=== PATIENT | female | born 1950 | race Caucasian/White ===

== ENCOUNTER → 2017-01-06 | Outpatient (CLI) | payer BC ==
[~2017-01-06] MED LIST: AMOXICILLIN 50500 MG PO; CIPRO 500MG TA500 MG PO; CRESTOR 10MG10 MG PO; LEVAQUIN 5500 MG/TA1 PO; LEVOFLOXACIN500 MG PO; LISINOPRIL10 MG PO; LORAZEPAM1 MG PO; NORCO 325 MG-51 TAB PO; PERCOCET 325 MG1 TA2 PO; PRIL40 PO; SYNTHROID0.1 MG PO; ZOLOFT PO
== END ==
LOC: COL.VAS 01-03 08:00
DX: I10 Essential (primary) hypertension (principal); I25.10 Atherosclerotic heart disease of native coronary artery without angina pectoris

== ENCOUNTER 2017-05-08 20:23 | Emergency (ER) | payer BC ==
[~2017-05-08] VITALS: Ht 157.5 cm; Wt 72.3 kg
[~2017-05-08 20:23] MED LIST changes: -AMOXICILLIN 50500 MG PO; -PERCOCET 325 MG1 TA2 PO; -PRIL40 PO
[2017-05-08 20:26] VITALS: TEMP 98
[2017-05-08] MEDS ORDERED: PRIL40 PO (20:31)
[2017-05-08 20:51] LABS: BASO # 0.1 (0.0-0.2); BASO % 0.4 % (0.0-2.0); EOS # 0.3 (0.0-0.7); EOS % 2.2 % (0-4.0); GRAN # 5.5 (1.4-6.5); GRAN % 47.1 % (42.2-75.2); HEMATOCRIT 38.8 % (37.0-47.0); HEMOGLOBIN 13.9 g/dl (12.5-16.0); LYMPH # 5.1 (1.2-3.4); LYMPH % 43.7 % (20.0-51.0); MEAN CELL VOLUME 92 fl (80.0-100.0); MEAN CORPUSCULAR HEMOGLOBIN 33 pg (27.0-31.0); MEAN CORPUSCULAR HGB CONC 36 g/dl (33.0-37.0); MONO # 0.7 (0.1-0.6); MONO % 6.3 % (1.7-9.3); PLATELET COUNT 246 K/mm3 (130-400); RED BLOOD COUNT 4.22 M/mm3 (4.10-5.30); REDCELL DISTRIBUTION WIDTH-CV 12.1 % (11.5-14.5); WHITE BLOOD COUNT 11.7 K/mm3 (4.8-10.8)
[2017-05-08 21:02] LABS: ADJUSTED CALCIUM 8.8 mg/dL (8.4-10.2); ALANINE AMINOTRANSFERASE 41 U/L (9-52); ALBUMIN 4.4 gm/dL (3.5-5.0); ALKALINE PHOSPHATASE 93 U/L (50-136); ANION GAP 13 mmol/L (7-16); BILIRUBIN,TOTAL 0.5 mg/dL (0.0-1.0); BLOOD UREA NITROGEN 10 mg/dL (7-17); CALCIUM 9.1 mg/dL (8.4-10.2); CARBON DIOXIDE 23 mmol/L (22-30); CHLORIDE 106 mmol/L (98-107); CREATININE, serum 0.66 mg/dL (0.52-1.25); GLUCOSE 85 mg/dL (74-106); LIPASE 80 U/L (23-300); POTASSIUM 3.8 mmol/L (3.4-5.0); SODIUM 141 mmol/L (137-145)
[2017-05-08 21:05] LABS: ACETAMINOPHEN < 10 ug/mL (10-30)
[2017-05-08 21:15] LABS: TROPONIN-I < 0.012 ng/mL (0.000-0.034)
[2017-05-08] MEDS ORDERED: AMOXICILLIN 50500 MG PO (22:25)
[2017-05-08] MEDS ORDERED: PERCOCET 325 MG1 TA2 PO (22:25)
[2017-05-08 22:26] VITALS: BP 135/77; PULSE 83
== END 2017-05-08 22:37 | disposition home or self-care (01) ==
LOC: COL.ER 20:23
PROVIDERS: Emergency Medicine
DX: K08.89 Other specified disorders of teeth and supporting structures (principal); I10 Essential (primary) hypertension; I25.10 Atherosclerotic heart disease of native coronary artery without angina pectoris; E78.5 Hyperlipidemia, unspecified
CPT/HCPCS: J1170; J2405

== ENCOUNTER 2017-09-20 19:13 | Inpatient (IN) | payer MEDICARE, BC ==
[~2017-09-20] VITALS: Ht 157.5 cm; Wt 74.6 kg
[~2017-09-20 19:13] MED LIST changes: +AMOXICILLIN 50500 MG PO; +PERCOCET 325 MG1 TA2 PO; +PRIL40 PO
[2017-09-20 19:55] LABS: COLLECTION METHOD CLEAN CATCH
[2017-09-20 19:59] LABS: BASO # 0.1 (0.0-0.2); BASO % 0.6 % (0.0-2.0); EOS # 0.3 (0.0-0.7); EOS % 2.5 % (0-4.0); GRAN # 7.2 (1.4-6.5); GRAN % 56.3 % (42.2-75.2); HEMATOCRIT 45.7 % (37.0-47.0); HEMOGLOBIN 16.3 g/dl (12.5-16.0); LYMPH # 4.3 (1.2-3.4); MEAN CELL VOLUME 92 fl (80.0-100.0); MEAN CORPUSCULAR HEMOGLOBIN 33 pg (27.0-31.0); MEAN CORPUSCULAR HGB CONC 36 g/dl (33.0-37.0); MEAN PLATELET VOLUME 10.4 fl (7.4-10.4); MONO # 0.8 (0.1-0.6); MONO % 6.4 % (1.7-9.3); PLATELET COUNT 278 K/mm3 (130-400); RED BLOOD COUNT 4.98 M/mm3 (4.10-5.30); WHITE BLOOD COUNT 12.8 K/mm3 (4.8-10.8)
[2017-09-20] MEDS ORDERED: AMOXICILLIN 8751 TAB PO (20:02)
[2017-09-20 20:24] LABS: MUCOUS Present /lpf; PH 5 (5-8); SQUAMOUS EPITHELIAL 0-2 /hpf; URINE APPEARANCE Cloudy; URINE BACTERIA None Seen /hpf; URINE BILIRUBIN Positive (NEGATIVE); URINE BLOOD Negative (NEGATIVE); URINE CALCIUM OXALATE CRYSTAL Present /hpf; URINE COLOR Amber; URINE GLUCOSE Negative (NEGATIVE); URINE KETONE Trace (NEGATIVE); URINE LEUKOCYTE ESTERASE 3+ (NEGATIVE); URINE PROTEIN(semi-quant) 1+ (NEGATIVE); URINE RBC 20-50 /hpf; URINE UROBILINOGEN >=4.0 mg/dL (NEGATIVE)
[2017-09-20 20:25] LABS: URINE WBC >50 /hpf
[2017-09-20 21:13] LABS: ADJUSTED CALCIUM 9.5 mg/dL (8.4-10.2); ALBUMIN 4.8 gm/dL (3.5-5.0); BILIRUBIN,TOTAL 0.6 mg/dL (0.0-1.0); CALCIUM 10.1 mg/dL (8.4-10.2); CREATININE, serum 0.76 mg/dL (0.52-1.25); POTASSIUM 4.2 mmol/L (3.4-5.0); TOTAL PROTEIN 8.8 gm/dL (6.4-8.2)
[2017-09-20] MEDS ORDERED: NORVASC 5MG5 MG/TAB PO (22:44)
[2017-09-20] MEDS ORDERED: VESICARE 5MG5 MG PO (22:45)
[2017-09-20] MEDS ORDERED: OMEGA-31 SGL PO (22:45)
[2017-09-20 23:10] VITALS: BP 143/69; PULSE 96; TEMP 97.7
[2017-09-21] MEDS ORDERED: TYLENOL PM EXTR1 TA1 PO (00:08)
[2017-09-21] MEDS ORDERED: EXCEDRIN1 TAB (00:08)
[2017-09-21 05:14] VITALS: BP 127/76; PULSE 79; TEMP 98.1
[2017-09-21 09:16] VITALS: BP 132/77; PULSE 79; TEMP 97.6
[2017-09-21 10:29] LABS: BASO # 0.1 (0.0-0.2); BASO % 0.4 % (0.0-2.0); EOS # 0.2 (0.0-0.7); GRAN # 6.4 (1.4-6.5); GRAN % 53.8 % (42.2-75.2); HEMATOCRIT 38.5 % (37.0-47.0); LYMPH # 4.4 (1.2-3.4); LYMPH % 37.3 % (20.0-51.0); MEAN CELL VOLUME 93 fl (80.0-100.0); MEAN CORPUSCULAR HEMOGLOBIN 32 pg (27.0-31.0); MEAN CORPUSCULAR HGB CONC 35 g/dl (33.0-37.0); MEAN PLATELET VOLUME 9.7 fl (7.4-10.4); MONO # 0.7 (0.1-0.6); MONO % 6.2 % (1.7-9.3); PLATELET COUNT 247 K/mm3 (130-400); RED BLOOD COUNT 4.14 M/mm3 (4.10-5.30); WHITE BLOOD COUNT 11.8 K/mm3 (4.8-10.8)
[2017-09-21 10:30] LABS: HEMOGLOBIN 13.4 g/dl (12.5-16.0)
[2017-09-21 10:40] LABS: CALCIUM 9.3 mg/dL (8.4-10.2); CREATININE, serum 0.72 mg/dL (0.52-1.25); POTASSIUM 4.5 mmol/L (3.4-5.0)
[2017-09-21 14:01] VITALS: BP 117/66; PULSE 81; TEMP 98
[2017-09-21 17:42] VITALS: BP 127/61; PULSE 74; TEMP 98
[2017-09-21 22:34] VITALS: BP 156/68; PULSE 83; TEMP 98.2
[2017-09-22 02:22] VITALS: BP 147/68; PULSE 76; TEMP 98.5
[2017-09-22 05:35] VITALS: BP 133/71; PULSE 77; TEMP 98.1
[2017-09-22 07:22] LABS: BASO # 0.1 (0.0-0.2); BASO % 0.5 % (0.0-2.0); EOS # 0.3 (0.0-0.7); EOS % 2.8 % (0-4.0); GRAN # 4.2 (1.4-6.5); GRAN % 45.6 % (42.2-75.2); HEMOGLOBIN 12.5 g/dl (12.5-16.0); LYMPH # 4.1 (1.2-3.4); LYMPH % 45.2 % (20.0-51.0); MEAN CELL VOLUME 95 fl (80.0-100.0); MEAN CORPUSCULAR HEMOGLOBIN 32 pg (27.0-31.0); MEAN CORPUSCULAR HGB CONC 34 g/dl (33.0-37.0); MEAN PLATELET VOLUME 10.2 fl (7.4-10.4); MONO # 0.5 (0.1-0.6); MONO % 5.7 % (1.7-9.3); PLATELET COUNT 222 K/mm3 (130-400); RED BLOOD COUNT 3.88 M/mm3 (4.10-5.30); WHITE BLOOD COUNT 9.1 K/mm3 (4.8-10.8)
[2017-09-22 07:27] LABS: HEMATOCRIT 36.8 % (37.0-47.0)
[2017-09-22 07:30] LABS: CALCIUM 8.6 mg/dL (8.4-10.2); CREATININE, serum 0.68 mg/dL (0.52-1.25); POTASSIUM 4.2 mmol/L (3.4-5.0)
[2017-09-22 14:59] VITALS: BP 147/70; PULSE 82; TEMP 98.6
[2017-09-22 17:46] VITALS: BP 165/86; PULSE 84; TEMP 98.1
[2017-09-22 22:00] VITALS: BP 169/82; PULSE 77; TEMP 98.3
[2017-09-23 02:15] VITALS: BP 159/95; PULSE 80; TEMP 98.2
[2017-09-23 05:02] VITALS: BP 134/60; PULSE 81; TEMP 98.8
[2017-09-23 07:15] LABS: BASO % 0.3 % (0.0-2.0); EOS # 0.2 (0.0-0.7); GRAN # 5.9 (1.4-6.5); GRAN % 59.1 % (42.2-75.2); HEMOGLOBIN 12.9 g/dl (12.5-16.0); LYMPH # 3.3 (1.2-3.4); LYMPH % 32.9 % (20.0-51.0); MEAN CELL VOLUME 92 fl (80.0-100.0); MEAN CORPUSCULAR HEMOGLOBIN 32 pg (27.0-31.0); MEAN CORPUSCULAR HGB CONC 35 g/dl (33.0-37.0); MEAN PLATELET VOLUME 10.2 fl (7.4-10.4); MONO # 0.5 (0.1-0.6); MONO % 5.4 % (1.7-9.3); PLATELET COUNT 232 K/mm3 (130-400); RED BLOOD COUNT 4.02 M/mm3 (4.10-5.30); WHITE BLOOD COUNT 9.9 K/mm3 (4.8-10.8)
[2017-09-23 07:19] LABS: HEMATOCRIT 36.9 % (37.0-47.0)
[2017-09-23 07:25] LABS: CALCIUM 9.2 mg/dL (8.4-10.2); CREATININE, serum 0.65 mg/dL (0.52-1.25); POTASSIUM 4.5 mmol/L (3.4-5.0)
[2017-09-23 09:55] VITALS: PULSE 80; TEMP 97.7
== END 2017-09-23 14:25 | disposition home or self-care (01) | DRG 389 ==
LOC: COL.ER 19:13 → SURG 21:33
PROVIDERS: Emergency Medicine; Surgery
PROC: 0D9670Z Drainage of Stomach with Drainage Device, Via Natural or Artificial Opening (ICD-10-PCS; principal; 2017-09-20)
DX: K56.600 Partial intestinal obstruction, unspecified as to cause (principal); N39.0 Urinary tract infection, site not specified; I10 Essential (primary) hypertension; Z87.891 Personal history of nicotine dependence
CPT/HCPCS: J0744; J1170; J1650; J1956; J2270; J2405; J7030; J7050; Q9967

== ENCOUNTER 2019-04-16 01:03 | Inpatient (IN) | payer MEDICARE, BC ==
[2019-04-16] VITALS (339 sets, daily range): BP systolic 132–181; BP diastolic 72–105; PULSE 74–102; TEMP 97.6–98.5; O2SAT 87–96
[~2019-04-16] VITALS: Ht 157.5 cm; Wt 70.5 kg
[~2019-04-16 01:03] MED LIST changes: +AMOXICILLIN 8751 TAB PO; +EXCEDRIN1 TAB PO; +KRILL OIL 5001 EACH PO; +NORVASC 5MG5 MG/TAB PO; +SYNTHROID0.088 MG/T PO; -SYNTHROID0.1 MG PO; +TYLENOL PM EXTR1 TA1 PO; +VESICARE 5MG5 MG PO
[2019-04-16 01:32] LABS: BASO # 0.1 (0.0-0.2); BASO % 0.4 % (0.0-2.0); EOS # 0.2 (0.0-0.7); EOS % 1.7 % (0-4.0); GRAN # 7.8 (1.4-6.5); GRAN % 69.7 % (42.2-75.2); HEMATOCRIT 37.7 % (37.0-47.0); LYMPH # 2.5 (1.2-3.4); LYMPH % 22.1 % (20.0-51.0); MEAN CELL VOLUME 93 fl (80.0-100.0); MEAN CORPUSCULAR HEMOGLOBIN 32 pg (27.0-31.0); MEAN CORPUSCULAR HGB CONC 35 g/dl (33.0-37.0); MEAN PLATELET VOLUME 9.8 fl (7.4-10.4); MONO # 0.7 (0.1-0.6); MONO % 5.8 % (1.7-9.3); PLATELET COUNT 233 K/mm3 (130-400); RED BLOOD COUNT 4.06 M/mm3 (4.10-5.30); REDCELL DISTRIBUTION WIDTH-CV 12.1 % (11.5-14.5)
[2019-04-16 01:40] LABS: PROTHROMBIN TIME 11.2 SECONDS (9.7-12.8)
[2019-04-16 01:42] LABS: ALBUMIN 3.9 gm/dL (3.5-5.0); BILIRUBIN,TOTAL 0.3 mg/dL (0.0-1.0); CALCIUM 9.1 mg/dL (8.4-10.2); CREATININE, serum 0.69 (0.52-1.25); POTASSIUM 4.2 mmol/L (3.4-5.0); TOTAL PROTEIN 7.6 gm/dL (6.4-8.2)
[2019-04-16 01:56] LABS: TROPONIN-I 0.078 ng/mL (0.000-0.035)
[2019-04-16 02:30] LABS: PARTIAL THROMBOPLASTIN TIME 30.9 SECONDS (26.0-37.0)
--- NOTE | 2019-04-16 06:35 | NUR ---
Patient arrived to medical floor room 319 from ER at approximately 0440. Denied having pain and discomfort. Stated that she just wants to go home, and is feeling much better. Explained that we had a cardiology consult for her today, and that she will remain NPO until after seen by cardiology to see if any tests needs to be performed. Voiced understanding. Given medications with sips of water. Heparin gtt continues at 8.5 ml/hr, along with NS at 75 ml/hr to right forearm. In bed watching TV at this time. Voices no other questions, needs, or concerns at this time. Call light is within reach.
[2019-04-16 07:34] LABS: TROPONIN-I 3 HR POST INITIAL 1.05 ng/mL (0.000-0.034)
--- NOTE | 2019-04-16 07:42 | NUR ---
Pt resting in bed with call light in reach. Pt troponin level called to Dr. De León. NNO.
--- NOTE | 2019-04-16 08:07 | NUR ---
Pt told lab to leave and they were unable to draw hep xa.
--- NOTE | 2019-04-16 10:10 | NUR ---
Pt was on heparin gtt at shift change per Katia Long RN. Heparin shows dc'd this am. Heparin gtt order clarified with Dr. De León and order given to DC gtt for now.
--- NOTE | 2019-04-16 10:21 | NUR ---
Initial visit; Patient thanked Palliative Medicine Physician for looking in on her and letting her know of the ability of Spiritual Care. Patient is planning her discharge with Social Work.
--- NOTE | 2019-04-16 11:26 | NUR ---
gave order to place heart cath orders. Heart cath order set used. lab courier called. Pt remains NPO.
[2019-04-16 11:37] LABS: PROTHROMBIN TIME 11.2 SECONDS (9.7-12.8)
[2019-04-16 11:39] LABS: PARTIAL THROMBOPLASTIN TIME 46.5 SECONDS (26.0-37.0)
[2019-04-16 11:45] LABS: HEMATOCRIT 39.8 % (37.0-47.0); HEMOGLOBIN 13.5 g/dl (12.5-16.0); MEAN CELL VOLUME 96 fl (80.0-100.0); MEAN CORPUSCULAR HEMOGLOBIN 33 pg (27.0-31.0); MEAN CORPUSCULAR HGB CONC 34 g/dl (33.0-37.0); MEAN PLATELET VOLUME 11.7 fl (7.4-10.4); PLATELET COUNT 243 K/mm3 (130-400); RED BLOOD COUNT 4.15 M/mm3 (4.10-5.30); REDCELL DISTRIBUTION WIDTH-CV 12.4 % (11.5-14.5)
[2019-04-16 11:50] LABS: CALCIUM 9.1 mg/dL (8.4-10.2); CREATININE, serum 0.63 (0.52-1.25); POTASSIUM 4.2 mmol/L (3.4-5.0)
--- NOTE | 2019-04-16 13:30 | NUR ---
Pt sleeping with even non-labored resp. Awakens per verbal stimuli. C/O headache when moving rates 5/10. NS continue to infuse at 75mL/hr. New bag of NS hung. Drifts back to sleep easily. Denies chest pain at this time.
--- NOTE | 2019-04-16 14:02 | NUR ---
Pt given 650mg tylenol for her headache rated 5/10. Consent signed and on chart.
--- NOTE | 2019-04-16 14:16 | NUR ---
SW attended clinical rounds to discuss discharge planning. Patient lives independently at home with her and grandchildren. Patient's PCP is Dr Morales and she obtains prescriptions from [facility]. Patient does not use any DME or home health serivces. Patient reported that she has seen a psychiatrist for grief because she has a lot of family members that have past away over the years. Patient reports that she is her grandkids caregiver because they're parents . SW inquired if patient sees someone regularly for her grief but patient reports she does not and is not interested in those services. SW reported that if patient would like any resources, SW can provide them. Patient declined. SW does not anticipate any discharge needs.
--- NOTE | 2019-04-16 14:35 | NUR ---
Pt calls and is c/o chest pain and pain across her lower back. VS monitored BP 178/88 P78 95% RA. Dr De León notified. Will continue to monitor.
--- NOTE | 2019-04-16 16:11 | NUR ---
Pt VS monitored. Staff from [facility] in room going over procedure. To procedure via bed with [facility] staff.
--- NOTE | 2019-04-16 16:31 | NUR ---
PLEASE SEE MERGE FOR ALL MEDICATION ADMINISTRATION TIMES PRE AND POST SEDATION ASSESSMENT DATA.
--- NOTE | 2019-04-16 18:03 | NUR ---
REPORT RECEIVED FROM HOA IN INSURANCE INVESTIGATOR.
--- NOTE | 2019-04-16 18:06 | NUR ---
PT TRANSFERRED FROM [facility] VIA BED TO ICU ROOM 6. PT LETHARGIC BUT EASILY AROUSABLE. PT'S RIGHT GROIN SITE CLEAN AND DRY.
--- NOTE | 2019-04-16 18:35 | NUR ---
PT ALERT AND ORIENTED BUT AGITATED. PT NOT HAPPY ABOUT HAVING TO CHANGE ROOMS, HAVING TO LAY FLAT, HAVING STENTS PLACED, ETC. PT ASKING WHERE HER THINGS ARE AND IF THEY WERE MOVED FROM HER OTHER ROOM.
[2019-04-17] VITALS (741 sets, daily range): BP systolic 129–187; BP diastolic 62–86; PULSE 73–96; TEMP 97.9–98.6; O2SAT 89–97
[2019-04-17 05:32] LABS: BASO % 0.1 % (0.0-2.0); GRAN # 7.5 (1.4-6.5); GRAN % 81.7 % (42.2-75.2); HEMOGLOBIN 13.1 g/dl (12.5-16.0); LYMPH # 1.4 (1.2-3.4); LYMPH % 15.5 % (20.0-51.0); MEAN CELL VOLUME 92 fl (80.0-100.0); MEAN CORPUSCULAR HEMOGLOBIN 33 pg (27.0-31.0); MEAN CORPUSCULAR HGB CONC 35 g/dl (33.0-37.0); MONO # 0.2 (0.1-0.6); MONO % 2.3 % (1.7-9.3); PLATELET COUNT 247 K/mm3 (130-400); RED BLOOD COUNT 4.02 M/mm3 (4.10-5.30)
[2019-04-17 05:43] LABS: CALCIUM 9.1 mg/dL (8.4-10.2); CREATININE, serum 0.79 (0.52-1.25)
--- NOTE | 2019-04-17 07:49 | NUR ---
GAVE REPORT TO STEPHANIE ZIMMER.
--- NOTE | 2019-04-17 07:49 | NUR ---
Report recieved from STEPHANIE Arreola. Patient resting in bed. MIVF infusing to uncomplicated peripheral site at ordered rate. Right groin site CDI, soft and free of hematoma. Patient denies needs at this time. Care assumed.
--- NOTE | 2019-04-17 10:20 | NUR ---
Patient assisted to order breakfast. Family at bedside. Denies further needs.
--- NOTE | 2019-04-17 10:48 | NUR ---
Dr. Cheng rounds on patient at this time.
--- NOTE | 2019-04-17 12:11 | NUR ---
Dr. De León rounds at this time POC discussed to include transfer to medical floor with plans for further PCI on friday. Patient is reluctant to stay but willing to do so based on MD recomendation.
--- NOTE | 2019-04-17 15:19 | NUR ---
Plan is to return home. Patient reports she resides with her Shaan . Patient indicated that she is active and independent. Patient reports that her pcps os Dr[facility] Morales at [facility]. Patient reports that she uses [facility] for RX.Patient denies the use of any dme, report ADLs. DPOA is her DTR Maryana Rader . Patient indicated that she can drive herself home after proceedure. At this time there are no anticipated needs.
--- NOTE | 2019-04-17 15:20 | NUR ---
Patient transported via WC to medical room 319. Right groin site re-dressed with sterile gauze and tegaderms occlusive and IV site wrapped for shower. STEPHANIE Saldana aware of patient arrival. Care transferred.
--- NOTE | 2019-04-17 16:45 | NUR ---
Pt alert and oriented and friend present. Pt denies SOB or chest pain. Pt toook shower upon arrival to unit. Pt washed off nitro paste so replaced when pt out of shower. Pt required one dose of HYdralazine for SBP >180. Pt BP was rechecked and SBP 150's. Pt IV tegaderm replaced and IV patent and no redness or infiltration noted. Pt has call light in reach and telemetry in place.
--- NOTE | 2019-04-17 20:22 | NUR ---
PT IN BED WITH HOB ELEVATED AT 45 DEGREE ANGLE. PT ATE FAST FOOD THAT BROUGHT IN. DENIES PAIN OR DISCOMFORT AND NO NEEDS AT THIS TIME. CALL LIGHT WITHIN REACH.
--- NOTE | 2019-04-18 01:31 | NUR ---
PT STARTED HAVING TIGHTNESS IN CHEST AND LOWER BACK. PT RATED PAIN AT A 3/10. PT STATED THAT THIS IS HOW SHE FELT THE OTHER DAY AND IT GOT WORSE. PT'S O2 SATS WERE AT 93%, PLACED OXYGEN AT 2L/NC AND O2 SATS WENT UP TO 96%. GAVE NITRO X3 AND PT ADVISED THAT IT MADE THE PAIN IN HER CHEST FEEL HEAVY AND GAVE HER A HEADACHE. PT WAS GIVEN TYLENOL FOR HEADACHE AND BACK PAIN. ADAM CORREA WAS NOTIFIED AND SHE ADVISED TO CALL [facility]. RECEIVED ORDERS FROM ADAM CORREA FOR EKG. EKG OBSTAINED, CALLED DR. GUERRERO AND RECEIVED ORDERS FOR ISOSORBIDE MONONITRATE 60 MG PO, ONE TAB NOW AND ONCE DAILY, ALSO A PULMONARY CONSULT. PT MONITORED FOR NEXT HOUR AND PT ADVISED THAT SHE FELT GOOD AND HAS NOT FELT SO RELAX FOR A LONG TIME. PT GOT AT 0130 AND CAME TO NURSES' STATION AND REQUESTED SOME CRACKERS FOR A SNACK. PT ADVISED THAT SHE IS FEELING FINE NO PAIN OR DISCOMFORT AT THIS TIME. PT WENT BACK TO ROOM.
[2019-04-18 03:48] VITALS: BP 107/49; PULSE 71; TEMP 98.3
--- NOTE | 2019-04-18 04:42 | NUR ---
PT SLEEPING/RESTING WITH NO S/S OF PAIN OR DISCOMFORT NOTED. CALL LIGHT WITHIN REACH.
--- NOTE | 2019-04-18 07:38 | NUR ---
Pt alert and oriented. Report received from Alicia BROWN as patient was brought up to room. Pt on 2L oxygen via nasal cannula and saturation 94%. Pt has call light in reach.
--- NOTE | 2019-04-18 08:03 | NUR ---
Pt resting in bed alert and oriented. Pt assessment completed. Pt states she is just tired at this time. Pt had some chest tightness earlier but she ate and now feels better. Pt IV flushed and no redness or infiltration noted. Pt has call light in reach and denies needs at this time. Pt denies chest pain or SOB at this time.
[2019-04-18 08:19] VITALS: BP 112/46; PULSE 86; TEMP 98.6
[2019-04-18 11:04] LABS: HEMOGLOBIN 11.6 g/dl (12.5-16.0); MEAN CELL VOLUME 93 fl (80.0-100.0); MEAN CORPUSCULAR HEMOGLOBIN 32 pg (27.0-31.0); MEAN CORPUSCULAR HGB CONC 35 g/dl (33.0-37.0); MEAN PLATELET VOLUME 10.4 fl (7.4-10.4); PLATELET COUNT 231 K/mm3 (130-400); RED BLOOD COUNT 3.59 M/mm3 (4.10-5.30); REDCELL DISTRIBUTION WIDTH-CV 12.4 % (11.5-14.5)
[2019-04-18 11:10] LABS: PARTIAL THROMBOPLASTIN TIME 28.2 SECONDS (26.0-37.0)
[2019-04-18 11:14] LABS: CALCIUM 8.7 mg/dL (8.4-10.2); CREATININE, serum 0.71 (0.52-1.25); POTASSIUM 3.6 mmol/L (3.4-5.0)
[2019-04-18 11:16] LABS: PROTHROMBIN TIME 11.2 SECONDS (9.7-12.8)
[2019-04-18 11:23] LABS: HEMATOCRIT 33.5 % (37.0-47.0)
[2019-04-18 11:28] VITALS: BP 116/52; PULSE 84; TEMP 98.8
--- NOTE | 2019-04-18 12:50 | NUR ---
Dr. Walsh notified this nurse pt refused that she has COPD and did not need to see him. Dr. De León notified and consult cancelled.
--- NOTE | 2019-04-18 15:59 | NUR ---
Pt stable this shift. Pt feeling very tired today. Pt will be NPO after mignight for heart cath in am. Pt denies pain or SOB. Pt has had visitors off and on through the day. Pt IV patent no redness or infiltration noted. Pt has call light in reach.
[2019-04-18 18:02] VITALS: BP 138/67; PULSE 93; TEMP 97.8
--- NOTE | 2019-04-18 19:31 | NUR ---
Pt report given to Maria Elena BROWN
--- NOTE | 2019-04-18 20:30 | NUR ---
Initial shift assessment done- states having pain to both ears- will give tylenol at this time, Up walking in the halls with staff. Will be NPO after MN, Tele on.
[2019-04-19] VITALS (131 sets, daily range): BP systolic 123–189; BP diastolic 54–102; PULSE 78–102; TEMP 98.1–98.6; O2SAT 93–96
--- NOTE | 2019-04-19 05:58 | NUR ---
Has been NPO - did sleep for a few hours,, just given her morning ASA prior to heart cath- IV fluids started at 100cc/hr on straight tubing-
[2019-04-19 06:01] LABS: BASO % 0.2 % (0.0-2.0); EOS # 0.2 (0.0-0.7); EOS % 1.2 % (0-4.0); GRAN # 7.5 (1.4-6.5); GRAN % 61.8 % (42.2-75.2); HEMOGLOBIN 12.6 g/dl (12.5-16.0); LYMPH # 3.6 (1.2-3.4); LYMPH % 29.7 % (20.0-51.0); MEAN CELL VOLUME 93 fl (80.0-100.0); MEAN CORPUSCULAR HEMOGLOBIN 32 pg (27.0-31.0); MEAN CORPUSCULAR HGB CONC 35 g/dl (33.0-37.0); MEAN PLATELET VOLUME 10.1 fl (7.4-10.4); MONO # 0.8 (0.1-0.6); MONO % 6.8 % (1.7-9.3); PLATELET COUNT 230 K/mm3 (130-400); RED BLOOD COUNT 3.93 M/mm3 (4.10-5.30); REDCELL DISTRIBUTION WIDTH-CV 11.9 % (11.5-14.5)
[2019-04-19 06:02] LABS: HEMATOCRIT 36.4 % (37.0-47.0)
[2019-04-19 06:24] LABS: ALBUMIN 3.8 gm/dL (3.5-5.0); BILIRUBIN,TOTAL 0.4 mg/dL (0.0-1.0); CALCIUM 8.9 mg/dL (8.4-10.2); CREATININE, serum 0.64 (0.52-1.25); MAGNESIUM 1.9 mg/dL (1.6-2.3); POTASSIUM 3.9 mmol/L (3.4-5.0); TOTAL PROTEIN 7.2 gm/dL (6.4-8.2)
--- NOTE | 2019-04-19 06:58 | NUR ---
SEE MERGE REPORT FOR MEDICATION ADMINISTRATION TIMES WELL INTRA/POST SEDATION ASSESSMENTS.
--- NOTE | 2019-04-19 07:39 | NUR ---
Received report from neurosurgical nurse RN. Pt has already left the floor to heart cath.
--- NOTE | 2019-04-19 09:50 | NUR ---
0950- animal laboratory helper team at bedside. ACT-163. PRN Hydralazine given by Log Sorting Supervisor team prior to sheath pull.
--- NOTE | 2019-04-19 10:07 | NUR ---
ACT drawn at 0950 and resulted 163. Blood pressure 164/83. Results and vital called to Dr. Siegel who gave a verbal order for 10mg hydralazine now and pull the femoral sheath. Hydralazine given as ordered. BP to 143/87 and sheath pulled per protocol by MEGGAN Smith and manual pressure applied.
--- NOTE | 2019-04-19 10:31 | NUR ---
Hemostasis achieved with manual pressure for 30 minutes by Kristine Wall. Small Hematoma noted to left femoral access site. Distal pulses DP and PT +1, site stable. Report to Porfirio BROWN at bedside and hematoma marked with skin marker. BP stable at 127/84. Pt tolerated the procedure well.
--- NOTE | 2019-04-19 11:30 | NUR ---
PT RETURNS TO RM 19 VIA BED. ALERT AND TALKING. UNSUCCESSFUL ATTEMPTS FOR HEARTCATH X2 TODAY. ARM BAND TO RIGHT WRIST ON WITH 12MM PRESSURE AND LEFT GROIN WITH PRESSURE DRESSING. NO ACTIVE BLEEDING FROM EITHER SPOT. AWARE SHE NEEDS TO LAY FLAT TILL 1430. FAMILY AT BEDSIDE. TELE ON WITH HR IN THE UPPER 80'S TO LOW 90'S.
[2019-04-19] MEDS ORDERED: PLAVIX 75MG TAB75 MG PO (13:13)
[2019-04-19] MEDS ORDERED: NITROSTAT0.4 MG/TAB SL (13:14)
[2019-04-19] MEDS ORDERED: IMDUR 60MG60 MG/TAB PO (13:15)
[2019-04-19] MEDS ORDERED: ASPIRIN E.C. 8181 MG PO (13:16)
[2019-04-19] MEDS ORDERED: ZESTRIL 20MG TA20 MG PO (13:16)
[2019-04-19] MEDS ORDERED: CRESTOR40 MG PO (13:18)
--- NOTE | 2019-04-19 13:30 | NUR ---
Pt resting in bed supine after heartcath. Released 2mL air from tourniquet. No bleeding noted. Will continue to monitor. Takes morning meds at this time. Left groin with pressure dressing on clean, dry and intact. No bleeding noted. External cath removed after incont. void. Denies pain, SOA. Will continue to monitor.
--- NOTE | 2019-04-19 14:01 | NUR ---
Pt visiting with Pharmacist. Released 5mL air from wrist tourniquet. No active bleeding noted. Pulses strong and regular bilat radial and femoral. Dressing to L groin clean, dry and intact. Will continue to monitor.
--- NOTE | 2019-04-19 14:34 | NUR ---
Released remaining air 5mL with no bleeding noted. Pulses palpable and strong right radial.
--- NOTE | 2019-04-19 15:01 | NUR ---
Pt right wrist tourniquet from heart cath removed. Monitored with no bleeding noted. Bandaid applied. Left groin dressing clean, dry and intact. Black dots around groin site unchanged. Pt had O2 off and her sats were 95% on room air. Assist to BR and instructed to not push or pull with right hand or lower extremities. Tolerated to BR and back to bed with no c/o. Sites with no bleeding.
--- NOTE | 2019-04-19 17:38 | NUR ---
Pt returns to the Rm 19 after having an attempted heartcath in R wrist and retried in L groin, unsuccessful. External catheter in place. Awake and aware she needs to lay flat till 1430. VS monitored. Denies pain. Tele on. Pressure dressing to right wrist and left groin.
--- NOTE | 2019-04-19 18:13 | NUR ---
Pressure to right wrist released by 2mL with no active bleeding. Will continue to monitor.
--- NOTE | 2019-04-19 18:18 | NUR ---
Pt tolerates the pressure released in arm band by 5mL with no active bleeding.
--- NOTE | 2019-04-19 18:23 | NUR ---
Pressure to right radial band deflated. Monitored and no active bleeding noted. Reminded pt no pulling or pulling with right hand. Verbalizes understanding. Will cont. to monitor.
--- NOTE | 2019-04-19 18:26 | NUR ---
Pt up to side of bed. Denies any pain, SOA. Reminded to not twist or bend right hand and groins. Assist to BR ambulatory with no problems. Steady gait. Voids large amount. Back to edge of bed.
== END 2019-04-19 16:15 | disposition home or self-care (01) | DRG 246 ==
LOC: COL.ER 01:03 → MEDICAL 03:33 → COL.ER 03:33 → EDBEDREQ 03:37 → ICU 21:03 → MEDICAL 21:03 → ICU 21:03 → MEDICAL 04-17 15:20 → ICU 04-17 15:20 → MEDICAL 04-17 15:20 → ICU 04-19 08:38 → MEDICAL 04-19 08:38 → ICU 04-19 11:47 → MEDICAL 04-19 11:47
PROVIDERS: Emergency Medicine; Internal Medicine Interventional Cardiology; Nurse Practitioner; ADMIT Family Medicine
PROC: 4A023N7 Measurement of Cardiac Sampling and Pressure, Left Heart, Percutaneous Approach (ICD-10-PCS; principal; 2019-04-16)
PROC: 027135Z Dilation of Coronary Artery, Two Arteries with Two Drug-eluting Intraluminal Devices, Percutaneous Approach (ICD-10-PCS; 2019-04-16)
PROC: B2111ZZ Fluoroscopy of Multiple Coronary Arteries using Low Osmolar Contrast (ICD-10-PCS; 2019-04-16)
PROC: B2151ZZ Fluoroscopy of Left Heart using Low Osmolar Contrast (ICD-10-PCS; 2019-04-16)
PROC: B2111ZZ Fluoroscopy of Multiple Coronary Arteries using Low Osmolar Contrast (ICD-10-PCS; 2019-04-19)
DX: I25.110 Atherosclerotic heart disease of native coronary artery with unstable angina pectoris (principal); I21.4 Non-ST elevation (NSTEMI) myocardial infarction; I10 Essential (primary) hypertension; J44.9 Chronic obstructive pulmonary disease, unspecified; E78.5 Hyperlipidemia, unspecified; E03.9 Hypothyroidism, unspecified; F17.200 Nicotine dependence, unspecified, uncomplicated; Z88.8 Allergy status to other drugs, medicaments and biological substances; Z88.1 Allergy status to other antibiotic agents; Z91.041 Radiographic dye allergy status
CPT/HCPCS: 99222-AI; 99233-AI; 99239; C1725; C1760; C1769; C1874; C1887; C1894; C9600; C9601; J0360; J0583; J1200; J1644; J1650; J2250; J2930; J3010; J7030

== ENCOUNTER → 2020-06-28 | Outpatient (CLI) | payer MEDICARE, BC ==
[~2020-06-28] MED LIST changes: +ASPIRIN E.C. 8181 MG PO; +CRESTOR40 MG PO; +IMDUR 60MG60 MG/TAB PO; +LIPITOR 40MG TA40 MG PO; +NITROSTAT0.4 MG/TAB SL; +PLAVIX 75MG TAB75 MG PO; +TOPROL XL 50MG50 MG PO; +ZESTRIL 20MG TA20 MG PO
== END ==
LOC: ZCOL.LAB 18:40
DX: Z20.828 Contact with and (suspected) exposure to other viral communicable diseases (principal); F17.290 Nicotine dependence, other tobacco product, uncomplicated